=== PATIENT | female | born 1965 | race Caucasian/White ===

== ENCOUNTER 2017-07-21 11:21 | Day surgery (SDC) | payer OTHER ==
[~2017-07-21] VITALS: Ht 172.7 cm; Wt 163.3 kg
[~2017-07-21 11:21] MED LIST: ALBU90OI INH; Acidophilus La100 GM PO; Atrovent Inha12.9 GM INH; LEVSOD100 PO; LITH300C PO; Omeprazole20 M1 PO; SERT100 PO
== END 2017-07-21 22:36 | disposition home or self-care (01) ==
LOC: ORSCMMR 11:21 → ORD 13:30 → ORSCMMR 15:29
PROVIDERS: Internal Medicine Gastroenterology
PROC: 0DB98ZX Excision of Duodenum, Via Natural or Artificial Opening Endoscopic, Diagnostic (ICD-10-PCS; principal; 2017-07-21 13:30)
PROC: 0DB68ZX Excision of Stomach, Via Natural or Artificial Opening Endoscopic, Diagnostic (ICD-10-PCS; principal; 2017-07-21 13:30)
DX: R14.0 Abdominal distension (gaseous) (principal); K29.00 Acute gastritis without bleeding; K30 Functional dyspepsia; R19.7 Diarrhea, unspecified; Z98.84 Bariatric surgery status; R14.2 Eructation; E03.9 Hypothyroidism, unspecified; F31.9 Bipolar disorder, unspecified; Z86.711 Personal history of pulmonary embolism; J45.909 Unspecified asthma, uncomplicated; E66.9 Obesity, unspecified; Z68.43 Body mass index [BMI] 50.0-59.9, adult; Z79.899 Other long term (current) drug therapy
CPT/HCPCS: 88305; 88342; J2250; J7120

== ENCOUNTER → 2017-08-05 | Outpatient (CLI) | payer OTHER | END | disposition home or self-care (01) | LOC: LAB SHORT 12:02 → LAB 12:02 | DX: R19.7 Diarrhea, unspecified (principal) | CPT/HCPCS: 87493 ==

== ENCOUNTER → 2017-08-12 | Outpatient (CLI) | payer OTHER | END | disposition home or self-care (01) | LOC: LAB SHORT 12:27 → LAB 12:27 | PROVIDERS: Advanced Practice Midwife | DX: Z01.419 Encounter for gynecological examination (general) (routine) without abnormal findings (principal); Z11.3 Encounter for screening for infections with a predominantly sexual mode of transmission | CPT/HCPCS: 87624; G0123 ==